=== PATIENT | female | born 1985 | race Caucasian/White ===

== ENCOUNTER 2023-11-26 11:05 | Emergency (ER) | payer OTHER, SELFPAY ==
[2023-11-26 11:07] VITALS: BP 139/91
[2023-11-26 11:48] VITALS: BMI 26.1
--- NOTE | 2023-11-26 11:59 | ED.GENMED ---
History of Present Illness
General
Chief Complaint: Headache
Time Seen by Provider: 11/26/23 11:23
Travel History
Have you had any contact with someone who has COVID-19?: No
Do you have any symptoms of coronavirus? Fever > 100 degrees, chills, cough, shortness of breath, sore throat, loss of taste or smell, muscle aches, or headache?: No
History of Present Illness
History of Present Illness:
38-year-old female with history of pituitary macroadenoma status post transsphenoidal resection August [facility] presents for eval ration of headache and nausea developing this morning. She is concerned this could indicate
hyponatremia as this was educated to her in the postoperative period. She did have an MRI of her brain about a week and a half ago at [facility] that showed a small postoperative fluid collection however no other acute complications. The patient had
no headaches at that time. At the direction of her resource conservationist she did take an increased dose of hydrocortisone this morning, typically takes 15 mg however took total of 20 mg this morning. Denies any blurry vision, visual field loss, chest
pain, shortness of breath, vomiting, or diarrhea.
Review of Systems
Review of Systems
Allergies reviewed?: Yes
All Other Systems: ROS reviewed and negative except as documented in HPI and ROS
Phy Exam
Physical Exam
Physical Exam:
GEN: Well appearing, NAD, WDWN
HEENT: Oral mucosa moist, no scleral icterus, no nasal congestion
Cardiac: Regular rate
Lung: No respiratory distress, no tachypnea
MSK: No gross deformity or injuries
Skin: Good color, no pallor or jaundice, no rashes
Neuro: AO x3; CN II-XII grossly intact. BUE strength 5/5 in all collins, sensation intact and symmetric. BLE strength 5/5 in all collins, sensation intact and symmetric, visual collins intact by confrontation x 4 and symmetric bilaterally
Psych: Calm, cooperative
Course
Orders/Labs/Results
Orders:
Orders
04/06/24 11:51
Complete Blood Count/With Diff Urgent
Comprehensive Metabolic Panel Urgent
HCG, Serum Qualitative Screen Urgent
11/26/23 11:59
Ketorolac [Toradol] 15 mg IV NOW STA
Ondansetron Injectable [Zofran] 4 mg IV NOW STA
11/26/23 12:18
Urinalysis Reflex To Culture Urgent
Date Specimen was Collected: 11/26/23
Time Specimen was Collected: 12:08
11/26/23 12:24
Add On- LAB Urgent
Tests Added?: HCG qual
Abnormal Lab Results
11/26/23
11:51
Hct 35.3 L %
(37.0-47.0)
MPV 12.2 H fL
(7.4-10.4)
Sodium 133 L mmol/L
(135-145)
11/26/23 11:51
11/26/23 11:51
Vital Signs
Initial and Last Documented VS:
Initial Vital Signs
Temp Pulse Resp BP Pulse Ox
98.4 F 69 18 139/91 99
11/26/23 11:07 11/26/23 11:07 11/26/23 11:07 11/26/23 11:07 11/26/23 11:07
Last Documented Vital Signs
Temp Pulse Resp BP Pulse Ox
98.5 F 73 16 129/77 98
11/26/23 13:19 11/26/23 13:19 11/26/23 13:19 11/26/23 13:19 11/26/23 13:19
MDM/Problems Addressed
MDM/Problems Addressed:
Labs are reassuring, no significant hyponatremia. Given reassuring MRI from just over 1 week ago I have a low clinical suspicion for postoperative infection, doubt the fluid collection would be correlating with symptoms as any degree of mass effect
and expected to reproduce her prior visual field anomalies that were present preoperatively as she has a reassuring neurologic exam. Treated supportively with NSAIDs and antiemetics with resolution of symptoms. Discussed outpatient follow-up with
endocrine
*Critical Care Note
Total Time (30-74mins, 75-104mins- exclusive of procedures): Not Applicable
ED Attending Note
-
Portions of this chart may have been created with voice recognition software.� Occasional wrong word or��sound alike� substitutions may have occurred due to the inherent limitations of voice recognition software.
Discharge Plan
Departure
Patient Disposition: Home (Routine Discharge)
Date of Disposition: 11/26/23
Time of Disposition: 12:48
Patient with high blood pressure during this ER visit?: No
Discharge Problem:
Acute headache
Instructions: Headache, Adult (DC)
Referrals:
Althea Rick NP [Family Provider] -
Activity Restrictions/Additional Instructions:
Follow up with your resource conservationist regarding further management of your steroids and desmopressin
Interventions
Interventions:
*Risk Screen - Suicide Last Done: 11/26/23 11:07
*General Assessment Last Done: 11/26/23 11:07
*Neglect/Abuse Screening Last Done: 11/26/23 11:07
*ED COVID-19 Vaccine History Last Done: 11/26/23 11:07
*Nursing Disposition Last Done: 11/26/23 13:19
ED- Neurological Assessment Last Done: 11/26/23 12:24
Discharge Date and Time
Discharge Date/Time: 11/26/23 13:20
Print Language: BELGIAN
[2023-11-26 12:00] VITALS: BP 118/84
[2023-11-26] MEDS: ZOFRAN 4 MG IV (12:25)
[2023-11-26] MEDS: TORADOL 15 MG IV (12:28)
[2023-11-26 12:31] LABS: % Basophils 0.6 % (0-2); % Eosinophils 1.5 % (0-6); % Immature Granulocytes 0.2 % (0-0.5); % Monocytes 6.6 % (1.7-9.3); % Neutrophils 65.1 % (42.2-75.2); Absolute Eosinophils 0.1 10^3/uL (0-0.7); Absolute Lymphocytes 1.4 10^3/uL (1.2-3.4); Absolute Monocytes 0.4 10^3/uL (0.1-0.6); Absolute Neutrophils 3.5 10^3/uL (1.4-6.5); Hematocrit 35.3 % (37.0-47.0); Mean Corpuscular Hgb 28.1 pg (27.0-31.0); Mean Corpuscular Volume 82.7 fL (81.0-99.0); Mean Platelet Volume 12.2 fL (7.4-10.4); Nucleated Red Blood Cells % 0 %; Platelet Count 201 10^3/uL (130-400); Red Blood Cell Count 4.27 10^6/uL (4.20-5.40); Red Cell Dist. Width 13.8 % (11.5-14.5); White Blood Cell Count 5.4 10^3/uL (4.8-10.8)
[2023-11-26 12:32] LABS: ALT (SGPT) 17 U/L (0-35); AST (SGOT) 21 U/L (14-36); Albumin 4.5 g/dl (3.5-5.0); Alkaline Phosphatase 71 U/L (38-126); Blood Urea Nitrogen 13 mg/dl (7-17); Calcium 9.4 mg/dl (8.4-10.2); Carbon Dioxide 25 mmol/L (22-30); Chloride 103 mmol/L (98-107); Estimated Creatinine Clearance 110 ml/min; Glucose 92 mg/dl (70-99); Potassium 4.2 mmol/L (3.5-5.1); Sodium 133 mmol/L (135-145); Total Bilirubin 0.4 mg/dl (0.2-1.3); Total Protein 7.3 g/dl (6.3-8.2); eGFR > 60.00
[2023-11-26 12:39] LABS: Urine Albumin Negative (Neg - Trace); Urine Bilirubin Negative (Negative); Urine Character Clear (Clear); Urine Color Yellow; Urine Glucose Negative (Negative); Urine Ketone Negative (Negative); Urine Leukocyte Negative (Negative); Urine Nitrite Negative (Negative); Urine Occult Blood Negative (Negative); Urine Specific Gravity 1.015 (<1.030); Urine Urobilinogen Negative (Neg - 1+); Urine pH 6.5 (5.0-9.0)
[2023-11-26 13:00] VITALS: BP 129/77
[2023-11-26 13:01] LABS: HCG, Serum Qualitative Screen Negative
[2023-11-26 13:19] VITALS: BP 129/77
== END 2023-11-26 13:20 | disposition home or self-care (01) ==
LOC: EMR 11:05
PROVIDERS: Physician Assistant; EMERGENCY PHYSICIAN Emergency Medicine; FAMILY PHYSICIAN Nurse Practitioner Family
DX: R51.9 Headache, unspecified (principal); Z86.018 Personal history of other benign neoplasm
CPT/HCPCS: 99283; 96374; 96375; 80053; 81003; 84703; 85025

== ENCOUNTER → 2024-05-03 16:25 | Outpatient (REF) | payer OTHER, SELFPAY ==
[2024-05-03 17:34] LABS: Chloride 103 mmol/L (98-107); Potassium 3.8 mmol/L (3.5-5.1); Sodium 141 mmol/L (135-145)
[2024-05-03 17:35] LABS: Blood Urea Nitrogen 16 mg/dl (7-17); Calcium 9.5 mg/dl (8.4-10.2); Carbon Dioxide 27 mmol/L (22-30); Glucose 106 mg/dl (70-99); eGFR > 60.00
[2024-05-03 17:56] LABS: Prolactin 31.1 ng/ml (3.0-18.6)
[2024-05-03 17:58] LABS: Free T4 0.86 ng/dl (0.78-2.19); Total Thyroxine 8.04 ug/dl (5.5-11.0)
[2024-05-03 18:07] LABS: Cortisol, Random 3.1 ug/dl; TSH 0.64 uIU/ml (0.47-4.68)
[2024-05-05 20:53] LABS: Adrenocorticotropic Hormone 10.9 pg/mL (7.2-63.3)
== END ==
LOC: REG 16:25
PROVIDERS: ATTENDING PHYSICIAN Internal Medicine Endocrinology, Diabetes & Metabolism; FAMILY PHYSICIAN Nurse Practitioner Family
DX: E23.2 Diabetes insipidus (principal); D35.2 Benign neoplasm of pituitary gland
CPT/HCPCS: 36415; 80048; 82024; 82533; 84146; 84436; 84439; 84443

== ENCOUNTER → 2024-06-05 17:19 | Outpatient (REF) | payer OTHER, SELFPAY ==
[2024-06-05 18:00] LABS: Blood Urea Nitrogen 12 mg/dl (7-17); Calcium 9.6 mg/dl (8.4-10.2); Carbon Dioxide 28 mmol/L (22-30); Chloride 103 mmol/L (98-107); Glucose 91 mg/dl (70-99); Potassium 4.3 mmol/L (3.5-5.1); Sodium 140 mmol/L (135-145); eGFR > 60.00
== END ==
LOC: REG 17:19
PROVIDERS: ATTENDING PHYSICIAN Internal Medicine Endocrinology, Diabetes & Metabolism; FAMILY PHYSICIAN Nurse Practitioner Family
DX: E23.2 Diabetes insipidus (principal)
CPT/HCPCS: 36415; 80048